=== PATIENT | male | born 1970 | race Caucasian/White ===

== ENCOUNTER 2021-04-17 12:30 | Emergency (ER) | payer SELFPAY ==
[~2021-04-17] VITALS: Ht 172.7 cm; Wt 86.2 kg
--- NOTE | 2021-04-17 12:49 | NUR ---
SEEN AND EXMAINED BY .
--- NOTE | 2021-04-17 12:55 | NUR ---
ASSISTANT COMMISSIONER AT BEDSIDE FOR XRAY.
--- NOTE | 2021-04-17 13:05 | NUR ---
COVID SPECIMEN OBTAINED AND SENT TO LAB.
--- NOTE | 2021-04-17 15:52 | NUR ---
URINE SPECIMEN OBTAINED AND SENT TO LAB.
[2021-04-17] MEDS ORDERED: IV NS 0.9% 1,000 ML BAG IV ONE (16:00)
--- NOTE | 2021-04-17 16:25 | NUR ---
iv access on r ac #[id number]
[2021-04-17 16:44] LABS: BASOPHILS % (AUTO) 0.7 % (0.0-2.0); EOSINOPHILS % (AUTO) 0.1 % (0.0-6.0); HEMATOCRIT 44 % (39-51); LYMPHOCYTES # (AUTO) 0.7 K/uL (0.8-4.8); LYMPHOCYTES % (AUTO) 12.9 % (20.0-44.0); MEAN CORPUSCULAR HGB CONC 34 g/dl (31.0-36.0); MEAN CORPUSCULAR VOLUME 90 fL (80-96); MONOCYTES # (AUTO) 0.9 K/uL (0.1-1.30); MONOCYTES % (AUTO) 18.4 % (2.0-12.0); NEUTROPHILS # (AUTO) 3.5 K/uL (1.8-8.9); NEUTROPHILS % (AUTO) 67.9 % (43.0-81.0); PLATELET COUNT (AUTO) 127 K/uL (150-450); RED BLOOD CELL COUNT(AUTO) 4.85 MIL/uL (4.5-6.0); WHITE BLOOD COUNT (AUTO) 5.1 K/uL (4.3-11.0)
[2021-04-17 17:17] LABS: CALCIUM, SERUM 8.3 mg/dL (8.5-10.1); CREATININE 1.2 mg/dL (0.6-1.3); POTASSIUM 3.7 mmol/L (3.5-5.1)
[2021-04-17 17:25] LABS: ALBUMIN 3.4 g/dL (3.4-5.0); BILIRUBIN,DIRECT 0.2 mg/dL (0.0-0.2); BILIRUBIN,TOTAL 0.6 mg/dL (0.2-1.0); TOTAL PROTEIN, SERUM 7.9 g/dL (6.4-8.2)
[2021-04-17 18:17] LABS: BAND % (MANUAL) 9 % (0.0-5.0); LYMPHOCYTES % (MANUAL) 17 % (16-48); MONOCYTES % (MANUAL) 12 % (0-11.0); MYELOCYTES % 3 % (0-0); NEUTROPHILS % (MANUAL) 59 (42-76)
[2021-04-17 19:17] LABS: BILIRUBIN,URINE NEGATIVE (NEGATIVE); COLOR,URINE BROWN (YELLOW); LEUKOCYTE ESTERASE ,URINE NEGATIVE (NEGATIVE); NITRITE, URINE POSITIVE (NEGATIVE); PH,URINE 6.5 (5.0-8.0); PROTEIN,URINE >=300 mg/dl (NEGATIVE); UGLUCOSE NEGATIVE (NEGATIVE)
--- NOTE | 2021-04-17 19:25 | NUR ---
PT REMOVED IV ACCESS, PT STATED DID NOT WANT TO BE POKED AGAIN.
[2021-04-17 19:27] LABS: BACTERIA,URINE 1+ /HPF (None Seen); FINE GRANULAR CASTS,URINE Few /LPF (None Seen); MUCUS,URINE Few /LPF (None Seen); RBC,URINE TOO NUMEROUS TO COUN /HPF (0-2); URINE AMORPHOUS URATE Many /HPF (None Seen); WBC,URINE 0-2 /HPF (0-3)
--- NOTE | 2021-04-17 19:45 | NUR ---
Patient eloped from facility. ER MD notified.
[2021-04-17 22:08] VITALS: BP 130/70
== END 2021-04-17 19:45 | disposition left against medical advice (07) ==
LOC: ER 13:24
DX: R31.9 Hematuria, unspecified (principal); R74.01 Elevation of levels of liver transaminase levels; R05.9 Cough, unspecified; R91.8 Other nonspecific abnormal finding of lung field; Z20.822 Contact with and (suspected) exposure to COVID-19; Z53.29 Procedure and treatment not carried out because of patient's decision for other reasons
CPT/HCPCS: 36415; 71045; 80048; 80076; 81001; 85007; 85025; 87086; 87426; 96360; 99284; C9803; J7030